=== PATIENT | male | born 2000 | race Caucasian/White ===

== ENCOUNTER 2022-08-14 15:03 | Emergency (ER) | payer SELFPAY ==
[2022-08-14] MEDS ORDERED: Ibuprofen 600 MG Tab PO ONE (16:27)
== END 2022-08-14 16:52 | disposition home or self-care (01) ==
LOC: MW.ED 15:03
DX: K08.89 Other specified disorders of teeth and supporting structures (principal)
CPT/HCPCS: 99283; A9270